=== PATIENT | male | born 1980 | race African-American/Black ===

== ENCOUNTER 2016-08-06 16:05 | Emergency (ER) | payer SELFPAY ==
[2016-08-06 16:06] VITALS: BMI 28.8
[2016-08-06 16:17] VITALS: TEMP 98.2
[2016-08-06] MEDS ORDERED: NS 1,000 ML IV ONE ×2 (16:21→17:43)
[2016-08-06] MEDS ORDERED: SODIUM CHLORIDE 0.9% 10 ML FLUSH FLUSH PRN (16:21)
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
[2016-08-06 16:52] LABS: MPV 7.9 fL (7.4-10.4)
[2016-08-06 17:00] LABS: BLOOD UREA NITROGEN 12 MG/DL (9-20); CALCIUM 9.6 MG/DL (8.4-10.2); CALCULATED OSMOLALITY 275 MOs/Kg (270-290); CHLORIDE 103 mEq/L (98-107); ETOH-MGDL 107 mg/dL; GLUCOSE 56 MG/DL (70-99); SODIUM LEVEL 144 mEq/L (137-146); TOTAL PROTEIN 9.2 G/DL (6.3-8.2)
[2016-08-06 17:21] LABS: ALL NEG? NO
[2016-08-06 17:32] LABS: MDMA* NEG (NEGATIVE); METHAMPHETAMINES NEG (NEGATIVE); OXYCODONE NEG (NEGATIVE)
[2016-08-06 17:33] LABS: LEUKOCYTES/URINE NEG (NEGATIVE); NITRITE/URINE NEG (NEGATIVE); URINE OCCULT BLOOD 3+ (NEG/TRACE)
[2016-08-06 17:54] LABS: SEG NEUTROPHIL 76 % (45-76)
[2016-08-06 18:43] VITALS: PULSE 92
[2016-08-06 19:13] VITALS: BP 134/74
== END 2016-08-06 17:53 | disposition home or self-care (01) ==
LOC: ED 16:05
DX: S31.119A Laceration without foreign body of abdominal wall, unspecified quadrant without penetration into peritoneal cavity, initial encounter (principal); S51.012A Laceration without foreign body of left elbow, initial encounter; F14.10 Cocaine abuse, uncomplicated; E86.0 Dehydration; W45.8XXA Other foreign body or object entering through skin, initial encounter; Y93.89 Activity, other specified
CPT/HCPCS: 12002; 80053; 80307; 81001; 84484; 85007; 85027; 86592; 93005; 96360; 99284; J3490